=== PATIENT | male | born 1970 | race Caucasian/White ===

== ENCOUNTER → 2017-12-04 | Outpatient (CLI) | payer OTHER ==
[~2017-12-04] MED LIST: ASPI-515 PO; LOSA1TAB19 PO; SAXA1TBM2 PO; SIMV10TA3 PO
== END | disposition home or self-care (01) ==
LOC: STAR 12:53
PROVIDERS: ATTEND Surgery
DX: Z01.818 Encounter for other preprocedural examination (principal); K42.9 Umbilical hernia without obstruction or gangrene
CPT/HCPCS: 93005

== ENCOUNTER 2017-12-12 08:16 | Day surgery (SDC) | payer OTHER ==
[~2017-12-12] VITALS: Ht 182.9 cm; Wt 121.4 kg
[2017-12-12] MEDS ORDERED: LACTATED RINGERS 1,000 ML IV SCH (08:40)
[2017-12-12 08:52] VITALS: BP 149/88
[2017-12-12] MEDS ORDERED: FENTANYL PF 250 MCG/5ML ONE (08:58)
[2017-12-12] MEDS ORDERED: MIDAZOLAM 1 MG/ML, 2ML ONE (08:58)
[2017-12-12] MEDS ORDERED: EPINEPHRINE 1 MG/ML, 1ML ONE (09:21)
[2017-12-12] MEDS ORDERED: BUPIVACAINE/PF 0.5% ONE (09:21)
[2017-12-12] MEDS ORDERED: KETOROLAC 30 MG/1 ML ONE (09:35)
[2017-12-12] MEDS ORDERED: NEOSTIGMINE 1 MG/ML, 10ML ONE (09:35)
[2017-12-12] MEDS ORDERED: CEFAZOLIN 1,000 MG ONE ×2 (09:44)
[2017-12-12] MEDS ORDERED: PROPOFOL 10 MG/ML, 20ML ONE (09:44)
[2017-12-12] MEDS ORDERED: DEXAMETHASONE 4 MG/ML, 1ML ONE ×2 (09:46)
[2017-12-12] MEDS ORDERED: PROMETHAZINE 12.5 MG SUPP PR PRN (10:00)
[2017-12-12] MEDS ORDERED: hydrALAzine 20 MG/ML, 1ML IV PRN (10:00)
[2017-12-12] MEDS ORDERED: ACETAMINOPHEN 325 MG TABLET PO PRN (10:00)
[2017-12-12] MEDS ORDERED: HYDROmorphone 1 MG/ML, 1ML IV PRN (10:00)
[2017-12-12] MEDS ORDERED: MEPERIDINE/PF 25MG/0.5ML IVPush PRN (10:00)
[2017-12-12] MEDS ORDERED: PROMETHAZINE 25 MG/ML, 1ML IV PRN (10:00)
[2017-12-12] MEDS ORDERED: LABETALOL 5MG/ML, 20ML IV PRN (10:00)
[2017-12-12] MEDS ORDERED: OXYcodone 5 MG/5 ML ORAL.SOL UDC PO PRN (10:00)
[2017-12-12] MEDS ORDERED: ONDANSETRON 2MG/ML, 2ML ONE (10:08)
[2017-12-12] MEDS ORDERED: LABETALOL 5MG/ML, 20ML ONE (10:08)
[2017-12-12] MEDS ORDERED: ROCURONIUM 10 MG/ML,10ML ONE (10:08)
[2017-12-12] MEDS ORDERED: FENTANYL PF 100 MCG/2ML ONE (11:17)
[2017-12-12] MEDS ORDERED: ACETAMINOPHEN 650 MG/20.3 ML UDC ONE (11:17)
[2017-12-12] MEDS ORDERED: OXYcodone 5 MG/5 ML ORAL.SOL UDC ONE (11:18)
[2017-12-12] MEDS: FENTANYL PF 100 MCG/2ML IV PRN ×2 (11:20→11:29)
== END 2017-12-12 14:15 ==
LOC: OR 08:16
PROVIDERS: ATTEND Surgery
DX: K42.0 Umbilical hernia with obstruction, without gangrene (principal); I10 Essential (primary) hypertension; E11.9 Type 2 diabetes mellitus without complications; Z79.82 Long term (current) use of aspirin; Z88.8 Allergy status to other drugs, medicaments and biological substances; Z88.6 Allergy status to analgesic agent; Z91.018 Allergy to other foods
CPT/HCPCS: 49653; 82962; J0171; J0690; J1100; J1885; J2250; J2405; J2704; J2710; J3010; J3490; J7120; C1781